=== PATIENT | male | born 1965 | race Caucasian/White ===

== ENCOUNTER 2017-01-18 00:54 | Emergency (ER) | payer SELFPAY ==
[2017-01-18 01:02] VITALS: BP 121/84; PULSE 95; TEMP 99; BMI 28.0
--- NOTE | 2017-01-18 01:16 | PDOC ---
History of Present Illness - General Chief Complaint: Chest Pain Stated Complaint: CHEST PRESSURE TODAY Time Seen by Provider: 01/18/17 01:11 History Source: Patient Exam Limitations: No Limitations - History of Present Illness Initial Comments: 01/18/17 01:23 01/18/17 01:20 This is a 51-year-old male who comes in complaining of chest pain 1 day. Patient says chest pain is described as a pressure sensation substernal and constant times over 12 hours. patient denies any associated symptoms other than some palpitations. Patient does also appear to be somewhat anxious. Patient denies history of similar symptoms in the past. Patient gives a questionable family history but does not know who in his family or what type of heart problems his family history includes. Patient's father does not have any heart problems and is still alive. Patient denies any use of cocaine or illegal drug use. Patient does not smoke. He denies any history of hypertension high cholesterol or diabetes. PAST MEDICAL HISTORY: no significant history PAST SURGICAL HISTORY: no significant history FAMILY HISTORY: no pertinant history SOCIAL HISTORY: Pt lives with family and is employed. MEDICATIONS: reviewed ALLERGIES: As per nursing notes Review of Systems General: No fevers or chills, no weakness, no weight loss HEENT: No change in vision. No sore throat,. No ear pain CardioVascular: + chest pain or shortness of breath Respiratory:No cough, or wheezing. Gastrointestinal: no nausea, vomitting, diarrhea or constipation, No rectal bleeding Genitourinary: No dysuria, hematuria, or frequency Musculoskeletal: No joint or muscle pain or swelling Neurologic: No headache, vertigo, dizziness or loss of consciousness Psychiatric: nor depression Skin: No rashes or easy bruising Endocrine: no increased thirst or abnormal weight change Allergic: no skin or latex allergy All other systems reviewed and normal Exam: General: Well-nourished well-developed individual, no acute distress HEENT: Throat: Normal, tonsils normal, no erythema or exudate Neck: Supple, no meningeal signs, no lymphadenopathy Eyes::Pupils equal reactive and round, extraocular motion intact Chest: Nontender to palpation Cardiac: S1-S2 normal, regular rate and rhythm, no murmurs rubs or gallops Respiratory: Lungs clear to auscultation bilateral Abdomen: Soft, nondistended, normal bowel sounds, nontender to palpation diffusely Extremities: Warm, dry, no cyanosis, clubbing, or edema Skin: No rashes Neuro: Alert and oriented x3, nonfocal exam, grossly intact, normal gait Psych: Normal mood and affect EKG showed shows normal sinus rhythm at a rate of [address]-T wave changes completely normal EKG Patient's troponin was negative Patient's heart score is 2 with overall risk of less than 1% of patient having an acute coronary event within the next couple of weeks. Patient discharged home will and will follow-up with his primary care doctor 01/18/17 21:46 Past History - Past Medical History Allergies/Adverse Reactions: Allergies Allergy/AdvReac Type Severity Reaction Status Date / Time NSAIDS (Non-Steroidal AdvReac Verified 01/18/17 01:12 Anti-Inflamma Home Medications: Ambulatory Orders Ranitidine HCl [Zantac] 150 mg PO DAILY 12/21/11 GI Disorders: Yes - Immunization History Td Vaccination: (UNKNOWN) - Psycho/Social/Smoking Cessation Hx Anxiety: No Suicidal Ideation: No Smoking Status: No Smoking History: Former smoker Have you smoked in the past 12 months: No Number of Cigarettes Smoked Daily: 0 Information on smoking cessation initiated: No Hx Alcohol Use: Yes (SOCIAL) Drug/Substance Use Hx: No Substance Use Type: None *Physical Exam - Vital Signs Last Vital Signs Temp Pulse Resp BP Pulse Ox 99 F 95 H 16 121/84 95 01/18/17 00:57 01/18/17 00:57 01/18/17 00:57 01/18/17 00:57 01/18/17 00:57 *DC/Admit/Observation/Transfer Diagnosis at time of Disposition: Anxiety - Discharge Dispostion Disposition: HOME Condition at time of disposition: Stable Admit: No - Patient Instructions Additional Instructions: U can take Tylenol or Motrin as needed for the pain. Follow-up with a primary care doctor. If you need a primary care doctor call Dr. Villanueva at [phone] for an appointment. Return to the emergency department immediately with ANY new, persistent or worsening symptoms. Continue any medications as previously prescribed by your physician. You should follow up with your primary doctor as soon as possible regarding today's emergency department visit. . Please make sure your doctor reviews the results of your emergency evaluation. Thank you for coming to the Emergency Department today for your care. It was a pleasure to see you today. Please note that your evaluation is INCOMPLETE until you follow-up with your doctor.
[2017-01-18 02:32] LABS: TROPONIN I < 0.02 ng/ml (0.00-0.05)
--- NOTE | 2017-01-19 12:59 | EKG ---
Test Reason : Blood Pressure : / mmHG Vent. Rate : 085 BPM Atrial Rate : 085 BPM P-R Int : 152 ms QRS Dur : 092 ms QT Int : 346 ms P-R-T Axes : 045 067 024 degrees QTc Int : 411 ms NORMAL SINUS RHYTHM NORMAL ECG NO PREVIOUS ECGS AVAILABLE Confirmed by CHARY LARKIN MD ([id number]) on 01/19/2017 12:59:29 PM Referred By: DR CAMPOS Confirmed By:CHARY LARKIN MD
== END 2017-01-18 02:38 | disposition home or self-care (01) ==
LOC: FER 00:54
DX: F41.9 Anxiety disorder, unspecified (principal); Z87.891 Personal history of nicotine dependence
CPT/HCPCS: 36415; 82550; 84484; 93005; 93010; 99281-25

== ENCOUNTER 2020-05-20 12:44 | Emergency (ER) | payer OTHER ==
--- NOTE | 2020-05-20 13:00 | TELE ---
HPI Do you have fever,cough or shortness of breath?: No - General Reason For Visit: COVID 19 TEST History Source: Patient Exam Limitations: No Limitations - History of Present Illness 05/20/20 12:56 Patient is a 54-year-old male with no past medical history who participated in a virtual urgent care visit for a COVID swab and a COVID antibody testing that he would like to have. The patient states he would like routine testing as his children are going back to college and he has a few restaurants. He states he has a lot of exposure and would just like to know. He denies any fevers, chills, shortness of breath, chest pain, loss of taste, body aches or any other symptoms. He has not traveled outside the within 30 days or outside [facility] within the last 15. Past History - Medical History Allergies/Adverse Reactions: Allergies Allergy/AdvReac Type Severity Reaction Status Date / Time NSAIDS (Non-Steroidal AdvReac Verified 01/18/17 01:12 Anti-Inflamma Home Medications: Ambulatory Orders Ranitidine HCl [Zantac] 150 mg PO DAILY 12/21/11 GI Disorders: Yes - Immunization History Td Vaccination: (UNKNOWN) - Psycho-Social/Smoking History Smoking Status: No Smoking History: Former smoker Have you smoked in the past 12 months: No Number of Cigarettes Smoked Daily: 0 Review of Systems - Review of Systems Comments:: 05/20/20 12:57 - Review of Systems Able to Perform ROS?: Yes Constitutional: No: Fever, Chills, Loss of Appetite, Night Sweats, Weakness; positive: Routine COVID testing and COVID antibody testing HEENTM: No: Eye Pain, Vision changes, Ear Pain, Throat Pain, Throat Swelling, Mouth Pain, Difficulty Swallowing Respiratory: No: Cough, Shortness of Breath, Wheezing, Sputum Production Cardiac (ROS): No: Chest Pain, Chest Tightness, Palpitations, Irregular Heart Beat, Edema ABD/GI: No: Nausea, Vomiting, Abdominal Pain, Diarrhea : No Dysuria, No Hematuria, No Frequency, No Urgency Musculoskeletal: No: Muscle Pain, Back Pain, Joint Pain, Muscle Weakness, Neck Pain Integumentary: No: Lesions, Rash Neurological: No: Headache, Numbness, Tingling, Weakness, Speech Difficulties *Physical Exam - Physical Exam 05/20/20 12:58 - Physical Exam General Appearance: Nourished, Appropriately Dressed, No Distress HEENT: EOMI, Normal Voice, Hearing Grossly Normal Neck: No Decreased range of motion Respiratory/Chest: Normal chest excursion appreciated, No Accessory Muscle Use Gastrointestinal/Abdominal: No distention Musculoskeletal: Normal Inspection Integumentary: Normal Color, Dry. No Rash Neurologic: lead mechanic II-XII NML intact, Fully Oriented, Alert, Normal Mood/Affect, Normal Response - Medical Decision Making 05/20/20 12:58 Assessment: Patient is a 54-year-old male with no past medical history who would like routine COVID and COVID antibody testing. He is asymptomatic. Plan: -COVID swab ordered -COVID antibodies ordered -COVID counseling given, isolation precautions reviewed -Patient to proceed to the [facility] for testing. Instructions given -He understands and agrees with this treatment plan Discharge Diagnosis at time of Disposition: Counseled about COVID-19 virus infection - Referrals - Patient Instructions Discharge Instructions: [facility]Coronavirus Instructions, [facility] COVID-19 Isolation Protocol Additional Discharge Instructions: You were seen via a telehealth visit and tested for COVID today. You should follow isolation precautions as per [facility] guidelines. Thank you for participating in our telehealth medicine program. If you have any worsening symptoms such as high fever, shaking chills, profuse vomiting or any other worsening symptoms you should go to your local emergency department immediately or follow up with your primary care doctor immediately. If you become symptomatic: Take Tylenol 650 mg every 6 hours as needed for fever or pain. You may take Robitussin or other [id number] cough syrup. Follow the dosing instructions on the bottle. Warm tea, honey, and salt water gargles may help your symptoms. Please take precautions and self quarantine for 2 weeks and follow-up with your primary care doctor and the Department of Health. Return to the nearest emergency department for shortness of breath, difficulty breathing, chest pain, or if you have any changes in your symptoms. - Discharge Disposition: HOME Condition at time of Disposition: Stable
== END 2020-05-20 13:00 | disposition home or self-care (01) ==
LOC: JVIRT 12:44
DX: Z11.59 Encounter for screening for other viral diseases (principal)
CPT/HCPCS: 36415; 86769; Q3014-GT; U0003